=== PATIENT | female | born 1975 | race African-American/Black ===

== ENCOUNTER 2016-05-18 17:34 | Observation (INO) | payer OTHER ==
[~2016-05-18] VITALS: Ht 162.6 cm; Wt 86.2 kg
[~2016-05-18 17:34] MED LIST: ALBUTEROL0.09 MG/A1 INH; AUGMENTIN 500-1 EACH PO; AUGMENTIN 875 M1 TAB PO; BACTROBAN OINT.15 GM EXT; DIFLUCAN150 M1 PO; EXCEDRIN MIGRAI1 TAB PO; FIORICET 325 MG1 TAB PO; FLEXERIL10 MG PO; HYDROXYZINE50 MG PO; IBUPROFEN100 MG/52 PO; IBUPROFEN800 MG PO; IMITREX50 MG PO; KEFLEX500 MG PO; LEVAQUIN500 MG PO; MOTRIN600 MG PO; NAPROXEN500 M1 PO; NEURONTIN100 MG; PERCOCET 325 MG1 TA2 PO; PERCOCET 5-3251 EACH PO; PERMETHRIN60 GM TOP; PREDNISONE50 MG PO; PROTONIX 40MG T40 MG PO; ROBITUSSIN W/CO10 ML PO; TESSALON PERLE100 MG PO; TRIAMCINOLONE A15 G1 TOP; VIBRAMYCIN 100100 MG PO; VICODIN 5-3001 EACH PO; ZOFRAN ODT4 MG PO; ZOFRAN ODT4 MG SL; ZOFRAN4 M1 PO
--- NOTE | 2016-05-18 17:58 | ED CARDIAC/CP/PALPITATIONS ---
History of Present Illness General Chief Complaint: Dyspnea (COPD, CHF, Other) Stated Complaint: SOB/CHEST TIGHTNESS, PT C/O FAST HEART RATE Source: patient Exam Limitations: no limitations Allergies Coded Allergies: latex (HIVES 08/18/15) Reconcile Medications Albuterol Sulfate (Proair Hfa) 90 MCG HFA.AER.AD 2 PUF INH Q4-6 PRN PRN ASTHMA (Reported) Albuterol Sulfate 2.5 MG/3 ML (0.083 %) VIAL.NEB 1 Vial INH/[place] PRN ASTHMA ( Reported) Aspirin (Adult Low Dose Aspirin EC) 81 MG TABLET.DR 1 TAB PO DAILY Heart Health Biotin (Hard Nails) 2,500 MCG CAPSULE 2 CAP PO DAILY SUPPLEMENT (Reported) Budesonide/Formoterol Fumarate (Symbicort 160-4.5 Mcg Inhaler) 160 MCG-4.5 MCG/ ACTUATION HFA.AER.AD 2 PUF INH BID ASTHMA (Reported) Fluticasone/Salmeterol (Advair 250-50 Diskus) (Unknown Strength) BLST.W.DEV ( Unknown Dose) INH BID ASTHMA (Reported) Methimazole (Tapazole) 5 MG TABLET 5 MG PO DAILY Hyperthyroid Metoprolol Succ XL (Toprol XL) 25 MG TAB 25 MG PO DAILY Heart Health Multivitamin (Multi-Day Vitamins) 1 EACH TABLET 1 TAB PO DAILY SUPPLEMENT ( Reported) Triage Nurses Notes Reviewed? yes HPI: This patient is a 40-year-old female with past medical history including asthma and GERD who presented to the emergency department today for chief complaint of chest, "cramping," and shortness of breath since Wednesday. The patient reported that she started noticing that her chest was feeling tight and cramping. She has also been feeling more short of breath and feeling, "sluggish." The patient reported that she thought that her asthma was acting up, so she has been using her inhalers and nebulizer without any relief of her symptoms. She reported that typically when she has an asthma exacerbation, her chest does not feel tight anymore after using the nebulizer machine. She reported that the current cramping is nonradiating and located primarily over the left side of her chest. No provoking or palliative factors. She was unable to quantify this pain on a number scale. The patient reported that she can feel her heart racing and has been feeling palpitations. She denied any fevers, chills, jaw pain, arm pain, numbness or tingling in her extremities, abdominal pain, nausea, vomiting, diarrhea, back pain, or any other associated symptoms. The patient reported that she takes a multivitamin and biotin. No other medications. This patient is not on any exogenous estrogen or control, she denied any calf pain or leg swelling. No cough or hemoptysis. No history of any blood clots. (ZO PEREZ PA-C) Vital Signs & Intake/Output Vital Signs & Intake/Output ED Intake and Output 05/20 0000 05/19 1200 Intake Total Output Total Balance Patient 190 lb Weight Past History Travel History Traveled to [place] past 21 day No Medical History Any Pertinent Medical History? 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 No (ZO PEREZ PA-C) Review of Systems Review of Systems Constitutional: Reports: see HPI. EENTM: Reports: no symptoms. Respiratory: Reports: see HPI. Cardiovascular: Reports: see HPI. GI: Reports: no symptoms. Genitourinary: Reports: no symptoms. Musculoskeletal: Reports: no symptoms. Skin: Reports: no symptoms. Neurological/Psychological: Reports: no symptoms. All Other Systems: Reviewed and Negative (ZO PEREZ PA-C) Physical Exam Physical Exam Cardiovascular: normal peripheral pulses, irregularly irregular, no murmurs, rubs, or gallops. no carotid bruits. no jvd Comments: Well-developed well-nourished person in no acute distress HEENT: Normal EENT exam, moist mucous membranes Pupils equally round and reactive to light. Neck: Supple, with no lymphadenopathy. No thyromegaly appreciated Back: Normal inspection Respiratory: Chest nontender. No respiratory distress. Speaking in full sentences. Lungs clear to auscultation bilaterally with no murmurs, rubs, gallops Abdomen: Soft, nontender and nondistended Extremity: Normal and equal pulses. No calf pain. No calf swelling. Negative Homans sign bilaterally Neuro: Alert oriented x3, cranial nerves II through XII grossly intact. Skin: No appreciable rash on exposed skin, skin is warm and dry. Psych: Mood and affect is normal, memory and judgment is normal. Core Measures ACS in differential dx? Yes Severe Sepsis Present: No Septic Shock Present: No (ZO PEREZ PA-C) Progress Differential Diagnosis: AMI, aortic dissection, atrial fibrillation, cholecystitis, CHF/pulm edema, costochondritis, hyperkalemia, hyperthyroid, hyperventilation, intracranial hemorrhage, musculoskeletal pain, myocarditis, pancreatitis, pericarditis, pneumonia, pneumothorax, PSVT, pulmonary embolism, PUD/GERD, PVCs/PACs, sepsis, unstable angina, atrial flutter Plan of Care: Orders Procedure Date/time Status Heart Healthy Diet 05/19 B Active Pathway - chart 05/18 2146 Active House Staff 05/18 2146 Active Patient Data 05/18 2146 Active Code Status 05/18 2146 Active Patient Data 05/[address] in observation 05/18 2058 Active D-DIMER 05/18 1830 Complete THYROID STIMULATING HORMONE 05/18 175 Complete TROPONIN LEVEL 05/18 175 Complete PARTIAL THROMBOPLASTIN TIME 05/18 1757 Complete PROTHROMBIN TIME 05/18 1757 Complete MAGNESIUM 05/18 175 Complete LIPID PANEL 05/18 175 Complete HUMAN BETA HCG SCREEN 05/18 175 Complete FREE T4 05/18 175 Complete COMPREHENSIVE METABOLIC PANEL 05/18 175 Complete CBC WITHOUT DIFFERENTIAL 05/18 175 Complete EKG 05/18 1739 Active VTE Mechanical Prophylaxis 05/18 UNK Active Telemetry/Meteorological Aide 05/18 UNK Active Current Medications Sig/Gabi Start time Last Medication Dose Stop Time Status Admin Budesonide/ 2 PUF BID 05/18 2199 UNVr Formoterol Fumarate (Symbicort) Budesonide/ 2 PUF BID 05/18 2199 UNVr Formoterol Fumarate (Symbicort) Laboratory Tests 05/18/16 1830: Anion Gap 12, Estimated GFR > 60, BUN/Creatinine Ratio 20.0, Glucose 92, Calcium 9.0, Magnesium 1.6, Total Bilirubin 0.3, AST 18, ALT 20, Alkaline Phosphatase 71 , Troponin I < 0.01, Total Protein 7.2, Albumin 3.5, Globulin 3.7, Albumin/ Globulin Ratio 0.9 L, Triglycerides 154 H, Cholesterol 127, LDL Cholesterol, Calc 52 L, HDL Cholesterol 45, Cholesterol/HDL Ratio 3, TSH < 0.015 L, Free T4 1.72, Total Beta HCG NEGATIVE, PT 11.1, INR 1.06, APTT 28, D-Dimer 283 H, CBC w Diff NO MAN DIFF REQ, RBC 5.44 H, MCV 62.5 L, MCH 19.1 L, RDW 16.3 H, MPV 8.4, Gran % 69.3, Lymphocytes % 19.5 L, Monocytes % 9.1, Eosinophils % 1.7, Basophils % 0.4, Absolute Granulocytes 7.7 H, Absolute Lymphocytes 2.2, Absolute Monocytes 1.0 H, Absolute Eosinophils 0.2, Absolute Basophils 0, PUBS MCHC 30.6 L 05/18/16 1807: D-Dimer Cancelled Diagnostic Imaging: Viewed by Me: Radiology Read, CT Scan. Discussed w/RAD: Radiology Read, CT Scan. Radiology Impression: PATIENT: NATHAN MORILLO PRESENT AGE: 40 PATIENT ACCOUNT NO: [id number] : 77 LOCATION: [facility] ORDERING PHYSICIAN: ZO PEREZ PA-C SERVICE DATE: 05/18/16 EXAM TYPE: CAT - CTA CHEST-PULMONARY EMBOLISM EXAMINATION: CT ANGIOGRAM OF THE CHEST WITH AND WITHOUT CONTRAST (CT PULMONARY ANGIOGRAM FOR PE) CLINICAL INFORMATION: SOB, AFIB , CHEST CRAMPING COMPARISON: Chest x-ray 05/18/2016 TECHNIQUE: Prior to contrast administration, noncontrast localization images were obtained. Subsequently, multidetector volumetric imaging was performed from the thoracic inlet to below the diaphragms following the administration of 120 mL Optiray 350 intravenous contrast. No contrast reaction reported Sagittal, coronal, and MIP oblique sagittal reformatted images were obtained on the CT workstation, uploaded to PACS, and reviewed. Total exam dose-length product 565.77 mGy-cm FINDINGS: QUALITY OF STUDY/CONTRAST BOLUS: Satisfactory. PULMONARY ARTERIES: No central or segmental pulmonary emboli. THORACIC AORTA: No aneurysm or dissection. LUNG: No focal consolidation, nodules or masses. PLEURA: No pleural effusion or pneumothorax. MEDIASTINUM: Normal heart size. No pericardial effusion. No hilar or mediastinal lymphadenopathy. No evidence of septal bowing or right heart strain. CHEST WALL/AXILLA: No axillary or internal mammary lymphadenopathy. OSSEOUS STRUCTURES: No acute or suspicious osseous abnormality. UPPER ABDOMEN: Unremarkable. No reflux of contrast into the hepatic veins to suggest elevated right heart pressures. There is a left renal cyst in the upper pole measuring 3 cm. IMPRESSION: Normal CT of chest. No evidence of pulmonary embolism. VTE: negative DICTATED BY: SERVANDO PADGETT MD DATE/TIME DICTATED:05/18/162025 [employer] TECHNICIAN:UTE DATE/TIME TRANSCRIBED:05/18/162025 CONFIDENTIAL, DO NOT COPY WITHOUT APPROPRIATE AUTHORIZATION. <Electronically signed in Other Vendor System> SIGNED BY: SERVANDO PADGETT MD 05/18/162037 CXR Impression: PATIENT: NATHAN MORILLO PRESENT AGE: 40 PATIENT ACCOUNT NO: [id number] : 77 LOCATION: [facility] ORDERING PHYSICIAN: ZO PEREZ PA-C SERVICE DATE: 05/18/16 EXAM TYPE: RAD - XRY- PORTABLE CHEST XRAY EXAMINATION: XR PORTABLE CHEST CLINICAL INFORMATION: 40-year -old female with chest tightness and shortness of breath. COMPARISON: None recent. TECHNIQUE: Portable view of the chest was obtained in the AP semierect position. FINDINGS: No significant abnormality is noted involving the heart, lungs, mediastinum, bony thorax or soft tissues. IMPRESSION: Unremarkable examination. DICTATED BY: ERNIE PAUL MD DATE/TIME DICTATED:05/18/162023 [employer]ARD[employer] TECHNICIAN:UTE DATE/TIME TRANSCRIBED:05/18/162023 CONFIDENTIAL, DO NOT COPY WITHOUT APPROPRIATE AUTHORIZATION. <Electronically signed in Other Vendor System> SIGNED BY: ERNIE PAUL MD 05/18/162029 Initial ED EKG: normal axis, no ST T wave changes, ATRIAL FLUTTER, 105 BPM Comments: 05/18/2016 7:34:43 PM: I was at the patient's bedside for reevaluation. Upon entering the room she was resting comfortably on the stretcher and in no acute distress. Updated her on her laboratory results so far. D-dimer is elevated to 283. Based on this patient's constellation of symptoms and elevated d-dimer, we will order a CT angiogram of the chest to rule out pulmonary embolism. The patient is in agreement with the plan. She reported that she has had intravenous contrast in the past with no adverse reaction. 05/18/2016 8:41:13 PM: I updated the patient on her imaging results. She did report that she has been told that she does have a low thyroid in the past. In March 2016 she had an ultrasound of her thyroid. The results here in the emergency department from the prior imaging showed 2 small nodules, one on the right lobe of the thyroid and one on the left lobe of the thyroid. 05/18/2016 8:56:12 PM: Spoke to Dr. Salinas, vice president industrial relations. Discussed this patient's workup with him. He would like this person to stay in the emergency department observation and have serial troponins and serial EKGs done. This patient may have this irregular heart rhythm due to hyperthyroidism. She will need an endocrinology follow-up appointment and cardiology follow-up appointment for echo and stress testing and further management. Discussed this patient with Dr. So. Chads score is 0. In agreement with the plan. (ANA FUNES,OZ) Departure Departure Disposition: STILL A PATIENT Condition: Stable Clinical Impression Primary Impression: Atrial flutter Qualifiers: Atrial flutter type: unspecified Qualified Code: I48.92 - Unspecified atrial flutter Referrals: SUMMER [facility]K APRN (PCP/Family) Departure Forms: Customer Survey General Discharge Information Prescriptions: Current Visit Scripts Methimazole (Tapazole) 5 MG PO DAILY #30 Metoprolol Succ XL (Toprol XL) 25 MG PO DAILY #30 TAB Aspirin (Adult Low Dose Aspirin EC) 1 TAB PO DAILY #30 TAB Observation Note Spoke With: KEE JAY MD Physician Advisor Notified: ESPINOZA DAILEY,SONNY Cal[address] Place Patient In: Non-ED OBS Care Area Rationale for Observation: My rational for observation is as follows [this patient is a 40-year-old female with a past medical history including GERD, asthma, and low thyroid level who presented to the emergency department for 3 days of chest cramping and shortness of breath. New onset atrial fibrillation versus atrial flutter. This patient will need to stay in the hospital for an observation for serial troponin levels, serial EKG, cardiology consultation, oxygen therapy, trend labs, and close monitoring. Given this patient's constellation of symptoms and history, premature discharge could prove medically harmful.]. (ANA FUNES,ZO) PA/RELIEF SALESPERSON Co-Sign Statement Statement: ED Attending supervision documentation- [X] I saw and evaluated the patient. I have also reviewed all the pertinent lab results and diagnostic results. I agree with the findings and the plan of care as documented in the PA's/RELIEF SALESPERSON's documentation. [X] I have reviewed the ED Record and agree with the PA's/RELIEF SALESPERSON's documentation. [] Additions or exceptions (if any) to the PAs/RELIEF SALESPERSON's note and plan are summarized below: [Patient found to be in new onset A. fib flutter. Patient's TSH is less than 0.015 however her free T4 is normal. The patient's CT angiogram was negative. Patient will require telemetry monitoring and serial enzymes. Patient will need cardiology evaluation and she'll need to see an cans vacuum tester. Patient SERA 2 score is 0.] (TRUPTI DAILEY,ESSENCE Calvert) Critical Care Note Critical Care Note Critical Care Time: non-applicable (ANA FUNES,ZO)
--- NOTE | 2016-05-18 17:59 | NUR ---
PT BROUGHT DIRECTLY TO RM 1 FOR CHEST TIGHTNESS, AND FEELING SLUGGISH FOR 3 DAYS. PT STATES SHE THOUGHT IT WAS HER ASTHMA BUT HAS HAD NO RELEIF FROM HER ALBUTEROL INHALER OR NEBS.
--- NOTE | 2016-05-18 18:38 | NUR ---
RECIEVED TO ROOM 1. SEEN BY ZO CHI. PT ON MONITOR IN AFIB. PLACED ON 2 LITERS NASAL CANNULA A PRECAUTION PER ORDER ZO CHI. 02 SATS ON ROOM AIR 100%. IV PLACED AND LABS NOEMY
[2016-05-18] MEDS ORDERED: MULTI-DAY VITA1 EACH PO (18:42)
[2016-05-18] MEDS ORDERED: HARD NAILS2500 MCG PO (18:43)
[2016-05-18] MEDS ORDERED: SYMBICORT 16010.2 GM INH (18:45)
[2016-05-18] MEDS ORDERED: PROAIR HFA8.5 GM INH (18:45)
[2016-05-18] MEDS ORDERED: ALBUTEROL2.5 MG/3 M INH/SOL (18:46)
[2016-05-18] MEDS ORDERED: ADVAIR 250-501 EACH INH (18:46)
[2016-05-18 18:47] LABS: ABSOLUTE BASOPHIL COUNT 0 /CUMM (0.0-0.2); ABSOLUTE EOSINOPHIL COUNT 0.2 /CUMM (0.0-0.7); ABSOLUTE GRANULOCYTE CT 7.7 /CUMM (1.4-6.5); ABSOLUTE LYMPH COUNT 2.2 /CUMM (1.2-3.4); BASOPHIL % 0.4 % (0.0-2.0); EOSINOPHIL % 1.7 % (0-5); GRANULOCYTE % 69.3 % (42.2-75.2); MEAN CORPUSCULAR HGB 19.1 PG (27.0-31.0); MEAN CORPUSCULAR HGB CONC 30.6 G/DL (33.0-37.0); MEAN CORPUSCULAR VOLUME 62.5 FL (81.0-99.0); MEAN PLATELET VOLUME 8.4 FL (7.4-10.4); PLATELET COUNT 317 /CUMM (130-400); RBC DISTRIBUTION WIDTH 16.3 % (11.5-14.5); RED BLOOD CELL CT 5.44 /CUMM (4.20-5.40); WHITE BLOOD CELL COUNT 11.1 /CUMM (4.8-10.8)
[2016-05-18 18:56] LABS: PT 11.1 SEC (9.4-12.5); PTT 28 SEC (25-37)
--- NOTE | 2016-05-18 19:10 | NUR ---
XRAY AT BEDSIDE FOR IMAGING
--- NOTE | 2016-05-18 19:31 | NUR ---
ARTI PEREZ AT BEDSIDE FOR DISCUSSION ON PLAN OF CARE
--- NOTE | 2016-05-18 20:30 | RADIOLOGY REPORT ---
EXAMINATION: XR PORTABLE CHEST CLINICAL INFORMATION: 40-year-old female with chest tightness and shortness of breath. COMPARISON: None recent. TECHNIQUE: Portable view of the chest was obtained in the AP semierect position. FINDINGS: No significant abnormality is noted involving the heart, lungs, mediastinum, bony thorax or soft tissues. IMPRESSION: Unremarkable examination.
--- NOTE | 2016-05-18 20:38 | CT SCAN REPORT ---
EXAMINATION: CT ANGIOGRAM OF THE CHEST WITH AND WITHOUT CONTRAST (CT PULMONARY ANGIOGRAM FOR PE) CLINICAL INFORMATION: SOB, AFIB, CHEST CRAMPING COMPARISON: Chest x-ray 05/18/2016 TECHNIQUE: Prior to contrast administration, noncontrast localization images were obtained. Subsequently, multidetector volumetric imaging was performed from the thoracic inlet to below the diaphragms following the administration of 120 mL Optiray 350 intravenous contrast. No contrast reaction reported Sagittal, coronal, and MIP oblique sagittal reformatted images were obtained on the CT workstation, uploaded to PACS, and reviewed. Total exam dose-length product 565.77 mGy-cm FINDINGS: QUALITY OF STUDY/CONTRAST BOLUS: Satisfactory. PULMONARY ARTERIES: No central or segmental pulmonary emboli. THORACIC AORTA: No aneurysm or dissection. LUNG: No focal consolidation, nodules or masses. PLEURA: No pleural effusion or pneumothorax. MEDIASTINUM: Normal heart size. No pericardial effusion. No hilar or mediastinal lymphadenopathy. No evidence of septal bowing or right heart strain. CHEST WALL/AXILLA: No axillary or internal mammary lymphadenopathy. OSSEOUS STRUCTURES: No acute or suspicious osseous abnormality. UPPER ABDOMEN: Unremarkable. No reflux of contrast into the hepatic veins to suggest elevated right heart pressures. There is a left renal cyst in the upper pole measuring 3 cm. IMPRESSION: Normal CT of chest. No evidence of pulmonary embolism. VTE: negative
--- NOTE | 2016-05-18 21:09 | NUR ---
PT MEDICATED WITH 325MG ASPIRIN PER EMAR
--- NOTE | 2016-05-18 21:24 | History & Physical ---
KIA DAILEY,[facility] 05/18/162122: General Information and HPI MD Statement: I have seen and personally examined NATHAN REGALADO and documented this H&P. The patient is a 40 year old F who presented with a patient stated chief complaint of shortness of breath and chest tightness. Source of Information: patient Exam Limitations: no limitations History of Present Illness: This is a 40-year-old lady with past medical history significant for asthma, GERD, menorrhagia, 2 ectopic pregnancies presents to [place] ED with complaints of shortness of breath. Patient states on Wednesday while at her normal state of health, developed shortness of breath and chest tightness. Patient states that she has experienced these episodes before and attributed them to her history of asthma and are normally alleviated by albuterol MDI use. However, patient reports that shortness of breath and chest tightness continued the following days on Wednesday and Wednesday and albuterol did not seem to help. Around 9 AM today (05/18), while she was bending down, she felt a sensation that she decribes as "my heart was flipping and flopping" and also experienced some palpitations. Patient reports this episode is new and has never happened before. Patient denies any chest pain, chest trauma, cough, recent URI, fever, chills, nausea, vomiting, abdominal pain, dizziness or any focal neurological deficit. Of note, her last asthma flare up was 4 years ago, which did not require hospitalization. Pertinent negatives include no contraceptive use, no recent calf pain, or central no recent immobilization or long distance travel, and family history is negative for any blood clotting disorders. . Allergies/Medications Allergies: Coded Allergies: latex (HIVES 08/18/15) Home Med list Albuterol Sulfate (Proair Hfa) 90 MCG HFA.AER.AD 2 PUF INH Q4-6 PRN PRN ASTHMA (Reported) Albuterol Sulfate 2.5 MG/3 ML (0.083 %) VIAL.NEB 1 Vial INH/[place] PRN ASTHMA ( Reported) Biotin (Hard Nails) 2,500 MCG CAPSULE 2 CAP PO DAILY SUPPLEMENT (Reported) Budesonide/Formoterol Fumarate (Symbicort 160-4.5 Mcg Inhaler) 160 MCG-4.5 MCG/ ACTUATION HFA.AER.AD 2 PUF INH BID ASTHMA (Reported) Fluticasone/Salmeterol (Advair 250-50 Diskus) (Unknown Strength) BLST.W.DEV ( Unknown Dose) INH BID ASTHMA (Reported) Multivitamin (Multi-Day Vitamins) 1 EACH TABLET 1 TAB PO DAILY SUPPLEMENT ( Reported) Past History Travel History Traveled to [place] past 21 day No Medical History Neurological: NONE EENT: NONE Cardiovascular: NONE Respiratory: asthma Gastrointestinal: GERD Hepatic: NONE Renal: NONE Musculoskeletal: NONE Psychiatric: NONE Endocrine: NONE Blood Disorders: NONE Cancer(s): NONE FLOWER 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 EENTM: Denies: double vision, visual changes, eye drainage. Cardiovascular: Reports: palpitations. Denies: chest pain, syncope. Respiratory: Reports: short of breath. Denies: cough, hemoptysis, orthopnea. GI: Denies: abdominal pain, bloating, constipation. Genitourinary: Denies: discharge, dysuria, hematuria, hesitation. Musculoskeletal: Denies: gout, joint pain, joint swelling. Skin: Denies: jaundice, lesions. Neurological/Psychological: Denies: depressed, dementia, emotional problems. Hematologic/Endocrine: Reports: no symptoms. Immunologic/Allergic: Reports: no symptoms. Exam & Diagnostic Data Last 24 Hrs of Vital Signs/I&O Vital Signs Date Time Temp Pulse Resp B/P Pulse O2 O2 Flow FiO2 Ox Delivery Rate 05/18 1839 Room Air 05/18 1754 98.0 100 16 114/70 98 Room Air Room Air Physical Exam General Appearance Alert, Oriented X3, Cooperative Skin No Rashes, No Breakdown, No Significant Lesion HEENT Atraumatic, PERRLA, EOMI, oral mucosa slightly dry Neck Supple, No JVD, No thryomegaly, +2 Carotid Pulse wo Bruit, No LAD Lymphatic Cervical nl Cardiovascular Normal S1, Normal S2, No Murmurs, irregular rate Lungs Clear to Auscultation, Normal Air Movement Abdomen Normal Bowel Sounds, Soft, No Tenderness Neurological Normal Speech, Normal Tone, Sensation Intact Extremities No Clubbing, No Cyanosis, No Edema, Normal Pulses, No Tenderness/ Swelling Vascular Normal Pulses, Pulses Symmetrical Diagnostic Data EKG Results arythimia: a/flutter. No acute ischemic changes noted Other Results SERVICE DATE: 05/18/16 EXAM TYPE: CAT - CTA CHEST-PULMONARY EMBOLISM EXAMINATION: CT ANGIOGRAM OF THE CHEST WITH AND WITHOUT CONTRAST (CT PULMONARY ANGIOGRAM FOR PE) CLINICAL INFORMATION: SOB, AFIB, CHEST CRAMPING COMPARISON: Chest x-ray 05/18/2016 TECHNIQUE: Prior to contrast administration, noncontrast localization images were obtained. Subsequently, multidetector volumetric imaging was performed from the thoracic inlet to below the diaphragms following the administration of 120 mL Optiray 350 intravenous contrast. No contrast reaction reported Sagittal, coronal, and MIP oblique sagittal reformatted images were obtained on the CT workstation, uploaded to PACS, and reviewed. Total exam dose-length product 565.77 mGy-cm FINDINGS: QUALITY OF STUDY/CONTRAST BOLUS: Satisfactory. PULMONARY ARTERIES: No central or segmental pulmonary emboli. THORACIC AORTA: No aneurysm or dissection. LUNG: No focal consolidation, nodules or masses. PLEURA: No pleural effusion or pneumothorax. MEDIASTINUM: Normal heart size. No pericardial effusion. No hilar or mediastinal lymphadenopathy. No evidence of septal bowing or right heart strain. CHEST WALL/AXILLA: No axillary or internal mammary lymphadenopathy. OSSEOUS STRUCTURES: No acute or suspicious osseous abnormality. UPPER ABDOMEN: Unremarkable. No reflux of contrast into the hepatic veins to suggest elevated right heart pressures. There is a left renal cyst in the upper pole measuring 3 cm. IMPRESSION: Normal CT of chest. No evidence of pulmonary embolism. VTE: negative DICTATED BY: SERVANDO PADGETT MD Assessment/Plan Assessment: This is a 89-year-old female with past medical history significant for asthma and GERD is presenting with symptoms of shortness of breath and chest tightness, and is found to have new onset a/flutter. Impression * New onset a /flutter: Possibly etiologies include respiratory , albuterol use, and hyperthyroidism. Will need to rule out ACS. * Shortness of breath: Possibly secondary to asthma * Anemia: Patient does have chronic microcytic anemia. * Elevated d-dimer. CTA ruled out PE. * Abnormal TSH level. Possible subclinical hyperthyroidism as T4 is normal. Subclinical hypothyroidism normally does not warrant treatment. In the setting of a/flutter in this patient, and history of radiological findings of thyroid nodules, retesting and endocrine consult may be beneficial. Plan * Will admit to telemetry for close cardiac monitoring * Will start Heparin drip per cardio recs (apreciated) * Will trend troponins and EKG * Echocardiogram tomorrow morning to assess for any valvular pathology * TRC nebs for asthma control * iron studies * f/u urine tox As Ranked By This Provider Problem List: 1. Atrial flutter Qualifiers Atrial flutter type: unspecified Qualified Code: I48.92 - Unspecified atrial flutter 2. History of asthma Core Measures/Miscellaneous Acute Coronary Syndrome ACS Diagnosis: No Cerebrovascular Accident CVA/TIA Diagnosis: No Congestive Heart Failure CHF Diagnosis: No Venous Thromboembolism VTE Risk Factors: Acute medical illness VTE Prophylaxis Ordered Inpt: [facility]- [facility] prophylaxis d/t: No contraindications No VTE Pharm Prophylaxis d/t: No contraindications VTE Diagnosis: No VTE Type: NONE VTE Confirmed by (Test): NONE Severe Sepsis Severe Sepsis Present: No Septic Shock Septic Shock Present: No Miscellaneous Documentation Attending [facility] Primary Care Physician: SUMMER MONK APRN Patient sees these Specialists none Level of Patient Care: Telemetry YESICA KIM 05/18/16 2251: Resident Review Statement Resident Statement: examined this patient, discussed with fashion styling intern, agreed with fashion styling intern, discussed with family, reviewed EMR data (avail), discussed with nursing , reviewed images Other Findings: Mrs Regalado is a 40 y/o AA lady w/ a PMH of left-sided ectopic in October 2015, arthroplasty in 2014, asthma, menorrhagia and history of shortness of breath, chest tightness and feeling sluggish. She reports a 3 day duration of loose bowel movements late last week. Over the weekend she experienced intermittent episodes of chest pressure what she intially thought was an asthma exacerbation, mildly improved with her albuterol. This morning while she was at work she experienced a sudden onset of palpitations and a feeling of "sluggishness" that has persisted since promptin her to follow up in the ED. She denies any headaches, blurred vision, dizziness, slurred speech, nausea, vomiting, numbness in any of her extremities. 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 QTC 434 Thyroid ultrasound (03/25/16): 2 small subcentimeter thyroid masses unchanged.. Problem list: 1. New onset atrial flutter/ablation 2. Low TSH (?? Hyperthyroidism) 3. Elevated d-dimer 4. Anemia 5. Asthma Plan: * admit to telemetry for continuous cardiac monitoring. Will obtain repeat EKG/ troponin at 0 100 hours, 0600 hrs. * Cardiology already notified (Dr. Suggs). In the setting of unknown duration of a flutter, will start the patient on heparin. Follow up echocardiogram in the a.m. * In the setting of low TSH and thyroid ultrasound findings as indicated above, would obtain endocrinology consult in the morning * Heart healthy diet * TRCs * DVT prophylaxis: Heparin * CODE STATUS: Full code PIERRE DAILEY, [facility] 05/18/16 2337: Attending MD Review Statement Attending Statement Attending MD Statement: examined this patient, discuss w/resident/PA/DIESEL BUS MECHANIC, agreed w/resident/PA/DIESEL BUS MECHANIC Attending Assessment/Plan: 40 yo obese F with h/o intermittent asthma, GERD, menorrhagia, left salpingectomy for ectopic (October 2015), is here for 2-day h/o chest tightness, lethargy and dyspnea. She tried albuterol thinking it is her asthma acting up, with not much relief in her symptoms. This was followed by palpitations that started while she was at work today, and persisted since. VSS. Labs: WBC 11.1, microcytic anemia, elevated D-dimer, trop neg, TSH < 0.015, free T4 1.72. CXR neg. CTA: no PE. EKG: Aflutter. 1. New onset Atrial flutter in the setting of possible subclinical hyperthyroidism (low TSH, normal free T4). 23 Obs on Tele, monitor for conversion to SR, serial EKG and troponin, Echo, Cardio consult (Dr. Suggs). Her OYE2SQ2-XILt score is 1, low embolic risk. However, Dr. Suggs recommended IV heparin which has been initiated. Aspirin given in ER. I would check a urine tox screen as patient reports occasional use of marijuana. Check free T3. Of note, patient had a thyroid USG in Mar 2016 which showed 2 subcentimeter thyroid nodules. Will obtain Endo consult in AM for appropriate follow up as outpatient. 2. Microcytic anemia. Guaiac all stools while on heparin, check iron studies. 3. Leukocytosis likely reactive. Check urinalysis. 4. Stable intermittent asthma. Continue TRC nebs and symbicort. DVT ppx IV heparin. Full code.
--- NOTE | 2016-05-18 21:32 | NUR ---
TELEMETRY RESIDENTS AT BEDSIDE FOR EVAL
--- NOTE | 2016-05-18 22:41 | NUR ---
PT MEDICATED WITH 2 PUFFS OF SYMBICORT WITH USE OF SPACER
--- NOTE | 2016-05-19 00:48 | NUR ---
REPEAT TROP DRAWN AND SENT BY THIS MST.
--- NOTE | 2016-05-19 05:06 | NUR ---
REPEAT TROP AND PTT DRAWN AND SENT BY THIS MST.
[2016-05-19 05:12] LABS: PTT 62 SEC (25-37)
--- NOTE | 2016-05-19 05:35 | NUR ---
OFFERS NO COMPLAINTS AMBULATED TO BR, URINE SPEC OBTAINED PT HAS MENSES VENODYNE BOOTS APPLIED
--- NOTE | 2016-05-19 06:50 | NUR ---
PT ADMIT TO TELE RM [id number]
--- NOTE | 2016-05-19 06:57 | PN- Housestaff ---
ALESSANDRA DAILEY,[facility] 05/19/16 0656: Subjective Follow-up For: Atrial Flutter Tele-Events Since Last Visit: NA Subjective: Ms Regalado was seen and examined this morning. She is resting comfortably in bed. Patient reports that her chest symptoms have markedly improved.S he has not had any palpitations or orthopnea since admission. She denies any shortness of breath or chest tightness Patient however does report lower abdominal cramps secondary to menses. Pain is currently rated at a 8 out of 10 in severity. Patient states that she normally experiences dysmenorrhea owing to history of painful menses. Patient reports since admission she denies any fever, chills, nausea, vomiting. Tolerating by mouth intake well. Review of Systems Constitutional: Reports: see HPI. Denies: chills, diaphoresis, fever, malaise. Objective Last 24 Hrs of Vital Signs/I&O Vital Signs Date Time Temp Pulse Resp B/P Pulse O2 O2 Flow FiO2 Ox Delivery Rate 05/19 0907 97.8 88 18 96/64 98 Room Air 05/19 0826 100 Room Air 05/19 0823 97.9 90 18 107/74 100 Room Air 05/19 0815 97.9 90 18 107/74 100 Room Air 05/19 0534 98.4 81 18 115/61 96 Nasal 2.0L Cannula 05/18 1839 Room Air 05/18 1754 98.0 100 16 114/70 98 Room Air Room Air Intake & Output 05/19 1600 05/19 0800 05/19 0000 Intake Total Output Total Balance Patient 86.183 kg 86.183 kg Weight Physical Exam General Appearance: Alert, Oriented X3, Cooperative, No Acute Distress Skin: No Rashes Cardiovascular: Normal S1, Normal S2, No Murmurs Lungs: Clear to Auscultation Abdomen: Normal Bowel Sounds, Soft, No Tenderness Neurological: Normal Speech, Strength at 5/5 X4 Ext Extremities: No Edema, Right 5th toe discolored Vascular: Normal Pulses Current Medications: Current Medications Sig/Gabi Start time Last Medication Dose Route Stop Time Status Admin Aspirin 0 .STK-MED ONE 05/18 2107 DC PO Aspirin 325 MG ONCE ONE 05/18 2099 DC 05/18 PO 05/18 Budesonide/ 2 PUF BID 05/18 2199 CAN Formoterol Fumarate INH Budesonide/ 2 PUF BID 05/18 2200 AC 05/18 Formoterol Fumarate INH 2241 Heparin Sodium 25,000 UNIT Q24H 05/18 2245 AC 05/18 (Porcine) IV 2302 Sodium Chloride 500 ML Ibuprofen 600 MG ONCE ONE 05/19 1000 AC PO 05/19 1001 Methimazole 5 MG DAILY 05/19 1000 AC PO Assessment/Plan Assessment: Ms. Regalado is a 40-year-old female with past medical history of GERD, asthma, menorrhagia, dysmenorrhea, thyroid nodules found incidentally in March 2016 who presented to the emergency department complaining of worsening palpitations over the last 72 hours. Patient was found to be in arrhythmia (atrial flutter versus fib). #New-onset atrial fibrillation likely due to sub clinical Hyperthyroidism Patient converted to normal sinus rhythm. Patient was started on heparin drip overnight and we can change this to aspirin which she will be administered daily. Will trend troponins and EKG: Initial Troponins and EKG, did not show any evidence of ischemia. We'll begin Toprol-XL 25 mg daily. Patient doesnot need to be anticoagulated given general CHADVASC2 score of 1 ( Female). Patient is stable for discharge and would likely need an echocardiogram as an outpatient. #Sub clinical hyperthyroidism. Patient was started on methimazole 5 mg daily. Monitor thyroid function in a.m. Free T3, T4, and TSH Given referral to follow up as an outpatient. #SOB coupled with Elevated D-Dimer Rule out PE Patient did have an elevated d-dimer the emergency department CTA was performed no evidence of any pulmonary embolism. Patient does have risk factors (obese, female) however denies any prolonged immobilization or OCP use. #History of asthma TRC nebs Supplemental O2 as needed Incentive Spirometry #History of menorrhagia and dysmenorrhea Iron studies rule out iron deficiency anemia Ibuprofen for pain PRN. #History of questionable drug use f/u urine tox #DVT prophylaxis IV heparin #Diet Heart healthy #Code Full code Problem List: 1. History of asthma 2. Atrial flutter 3. Eczema 4. Muscle strain of right shoulder 5. Ectopic 6. Dysmenorrhea Pain Ratin Pain Location: Lower Abdomen. Pain Goal: Remain pain free Pain Plan: Ibuprofen PRN Tomorrow's Labs & Rationales: ELIAS MARIE MD 05/19/162128: Attending MD Review Statement Attending Statement Attending MD Statement: examined this patient, discuss w/resident/PA/TOWBOAT OPERATOR, agreed w/resident/PA/TOWBOAT OPERATOR, reviewed EMR data (avail), discussed with nursing, discussed with case mgmt, amended to note Attending Assessment/Plan: The patient was seen and discussed with house staff. Appreciate Cardiology & Endocrinology input. Will discharge today with follow-up thyroid indices in morning and OP follow-up with PCP, Endocrinology & Cardiology.
--- NOTE | 2016-05-19 07:53 | NUR ---
ASSUMED CARE, PT AWAKE ALERT AND ORIENTED, DENIES FEELING SOB AT THIS TIME , O2 SAT 100 % ON RA, HR 90 AND AFIB ON MONITOR, HEPARIN INFUSING VIA PUMP AT 26ML/HR. PT AMBULATED TO BATHROOM AT THIS TIME WITH STEADY GAIT, PT STATES THAT SHE HAS 8/10 MENSTRUAL CRAMPS AT THIS TIME, STATES THAT SHE HAD TO GET UP X 3 DURING THE NIGHT TO CHANGE HER MAXI PAD DUE TO OURS ARE SMALLER THAN THE ONES SHE USES, PT PROVIDED WITH ANOTHER PAD AND WARM WIPES SO THAT SHE CAN WASH UP AT THIS TIME. BREAKFAST TRAY PRIVIDED AND PT ATE ABOUT 75 %
--- NOTE | 2016-05-19 08:19 | NUR ---
REPORT TO JOHN ON TELE.
[2016-05-19 08:23] VITALS: BP 107/74
--- NOTE | 2016-05-19 08:31 | NUR ---
PT NOTED TO BE NSR ON M ONITOR AT THIS TIME HR 86.
[2016-05-19 09:07] VITALS: BP 96/64
--- NOTE | 2016-05-19 10:59 | Cons- Endocrinology ---
General Information and HPI Consulting Request Date of Consult: 05/19/16 Requested By: medical team Reason for Consult: management of hyperthyroidism Source of Information: patient, old records Exam Limitations: no limitations History of Present Illness: 40 yo obese [place] with hx of asthma, GERD, menorrhagia, left salpingectomy for ectopic and two subcentimeter thyroid nodules, presented to ER with the chief complaint of having intermittent palpitation x 3 days. Patient was found to be in atrial flutter. Her TSH was < 0.015 along with free T4 of 1.72 and free T3 5.8. She received iv contrast when she had CT scan of chest done. Allergies/Medications Allergies: Coded Allergies: latex (HIVES 08/18/15) Home Med List: Albuterol Sulfate (Proair Hfa) 90 MCG HFA.AER.AD 2 PUF INH Q4-6 PRN PRN ASTHMA (Reported) Albuterol Sulfate 2.5 MG/3 ML (0.083 %) VIAL.NEB 1 Vial INH/[place] PRN ASTHMA ( Reported) Biotin (Hard Nails) 2,500 MCG CAPSULE 2 CAP PO DAILY SUPPLEMENT (Reported) Budesonide/Formoterol Fumarate (Symbicort 160-4.5 Mcg Inhaler) 160 MCG-4.5 MCG/ ACTUATION HFA.AER.AD 2 PUF INH BID ASTHMA (Reported) Fluticasone/Salmeterol (Advair 250-50 Diskus) (Unknown Strength) BLST.W.DEV ( Unknown Dose) INH BID ASTHMA (Reported) Multivitamin (Multi-Day Vitamins) 1 EACH TABLET 1 TAB PO DAILY SUPPLEMENT ( Reported) Review of Systems Review of Systems Constitutional: Reports: see HPI. Cardiovascular: Reports: palpitations. Respiratory: Reports: short of breath. GI: Denies: abdominal pain, constipation, diarrhea. Genitourinary: Denies: dysuria. Hematologic/Endocrine: Denies: polyuria, polydipsia. 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, ectopic Surgical History Surgical History: chronic nonhealing ulcer fourth interspace right foot hammer toe surgery I&D LAPAROSCOPY Psychosocial History Smoking Status: Never Smoked ETOH Use: denies use Illicit Drug Use: denies illicit drug use Exam & Diagnostic Data Last 24 Hrs of Vital Signs/I&O Vital Signs Date Time Temp Pulse Resp B/P Pulse O2 O2 Flow FiO2 Ox Delivery Rate 05/19 0807 97.8 88 18 96/64 98 Room Air 05/19 0826 100 Room Air 05/19 0823 97.9 90 18 107/74 100 Room Air 05/19 0815 97.9 90 18 107/74 100 Room Air 05/19 0534 98.4 81 18 115/61 96 Nasal 2.0L Cannula 05/18 1839 Room Air 05/18 1754 98.0 100 16 114/70 98 Room Air Room Air Intake & Output 05/19 1600 05/19 0800 05/19 0000 Intake Total Output Total Balance Patient 190 lb 190 lb Weight Physical Exam General Appearance: no apparent distress Neck: thyromegaly (mild) Respiratory: lungs clear Cardiovascular: regular rate/rhythm Gastrointestinal: soft, non-tender Extremities: no edema Other Physical Findings: no fine tremors Assessment/Plan Assessment/Plan 40 yo obese [place] with hx of asthma, GERD, menorrhagia, left salpingectomy for ectopic and two subcentimeter thyroid nodules, presented to ER with the chief complaint of having intermittent palpitation x 3 days. Patient was admitted for atrial flutter. Her TSH was < 0.015 along with free T4 of 1.72 and free T3 5.8. She received iv contrast when she had CT scan of chest done. Hyperthyroidism ? toxic multinodular goiter vs Graves' disease. 1. check thyroid antibody panel and TSI (added on to ER blood sample); 2. start Methimazole 5 mg daily; the possible side effects related to antithyroid medications have been discussed with her; 3. thyroid function might get worse as she received iv contrast this morning. I have recommended monitoring free T4 level tomorrow. 4. rate control as per cardiology. will follow. Consult Acknowledgment - Thank you for your consult request.
[2016-05-19 11:40] LABS: PTT 53 SEC (25-37)
--- NOTE | 2016-05-19 12:41 | Cons- Cardiology ---
General Information and HPI Consulting Request Date of Consult: 05/19/16 Requested By: ELIAS UMANZOR MD Reason for Consult: Atrial fibrillation History of Present Illness: The patient is a 40-year-old female with history of asthma, GERD, and thyroid nodules who presented with complaint of palpitations, chest discomfort and shortness of breath. She notes that for the last 3 days she was feeling sluggish, and intermittently felt a strange sensation in her chest. She thought it was her asthma, however it was not improved by her nebulizer therapy. She was evaluated in the emergency department where she was found to be in atrial fibrillation. Ventricular rate was mostly controlled, although was borderline elevated at times. She had intermittent atrial fibrillation while in the emergency department, however since being transferred to the telemetry floor she has been in sinus rhythm with no further arrhythmias. No prior history of chest pain or palpitations. No lightheadedness or dizziness. No syncope. No orthopnea. She was noted to have a low TSH, and she has been evaluated by endocrinology for possible hyperthyroidism Allergies/Medications Allergies: Coded Allergies: latex (HIVES 08/18/15) Home Med List: Albuterol Sulfate (Proair Hfa) 90 MCG HFA.AER.AD 2 PUF INH Q4-6 PRN PRN ASTHMA (Reported) Albuterol Sulfate 2.5 MG/3 ML (0.083 %) VIAL.NEB 1 Vial INH/[place] PRN ASTHMA ( Reported) Biotin (Hard Nails) 2,500 MCG CAPSULE 2 CAP PO DAILY SUPPLEMENT (Reported) Budesonide/Formoterol Fumarate (Symbicort 160-4.5 Mcg Inhaler) 160 MCG-4.5 MCG/ ACTUATION HFA.AER.AD 2 PUF INH BID ASTHMA (Reported) Fluticasone/Salmeterol (Advair 250-50 Diskus) (Unknown Strength) BLST.W.DEV ( Unknown Dose) INH BID ASTHMA (Reported) Multivitamin (Multi-Day Vitamins) 1 EACH TABLET 1 TAB PO DAILY SUPPLEMENT ( Reported) Current Medications: Current Medications Sig/Gabi Start time Last Medication Dose Route Stop Time Status Admin Aspirin 0 .STK-MED ONE 05/18 2107 DC PO Aspirin 325 MG ONCE ONE 05/18 2099 DC 05/18 PO 05/18 Budesonide/ 2 PUF BID 05/18 2199 CAN Formoterol Fumarate INH Budesonide/ 2 PUF BID 05/18 2200 AC 05/19 Formoterol Fumarate INH 1050 Heparin Sodium 25,000 UNIT Q24H 05/18 2245 AC 05/18 (Porcine) IV 2302 Sodium Chloride 500 ML Ibuprofen 600 MG ONCE ONE 05/19 1000 DC 05/19 PO 05/19 1001 1051 Methimazole 5 MG DAILY 05/19 1000 AC 05/19 PO 1051 Review of Systems Review of Systems: Rash. No tremor. No melena. All other systems were reviewed, and were noted to be negative. 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 Surgical History Surgical History: chronic nonhealing ulcer fourth interspace right foot hammer toe surgery I&D LAPAROSCOPY Family History Relations & Conditions If Any: MOTHER Hepatic cirrhosis Psychosocial History Smoking Status: Never Smoked ETOH Use: denies use Illicit Drug Use: denies illicit drug use Exam & Diagnostic Data Vital Signs and I&O Vital Signs Date Time Temp Pulse Resp B/P Pulse O2 O2 Flow FiO2 Ox Delivery Rate 05/19 0907 97.8 88 18 96/64 98 Room Air 05/19 0826 100 Room Air 05/19 0823 97.9 90 18 107/74 100 Room Air 05/19 0815 97.9 90 18 107/74 100 Room Air 05/19 0534 98.4 81 18 115/61 96 Nasal 2.0L Cannula 05/18 1839 Room Air 05/18 1754 98.0 100 16 114/70 98 Room Air Room Air Intake & Output 05/19 1600 05/19 0800 05/19 0000 05/18 1600 05/18 0800 05/18 0000 Intake Total Output Total Balance Patient 190 lb 190 lb Weight Physical Exam: Gen: The patient is in no acute distress HEENT: Normal nose, ears, and oropharynx. Pupils equal bilaterally. Conjunctiva normal. Neck: Supple with no JVD, no masses, and no thyromegaly Lungs: Clear to auscultation with normal respiratory effort Heart: RRR, S1, S2, no murmurs. No peripheral edema, 2+ pulses in the lower extremities bilaterally Abdomen: Soft, nontender, no masses. No hepatomegaly. No splenomegaly Extremities: No clubbing or cyanosis. Normal muscle strength in the upper and lower extremities Skin: Normal skin turgor with no skin ulcers or lesions noted. Neuro: Cranial nerves intact. Sensation intact Psych: Alert and oriented 3 with appropriate affect Labs/Chuy Results: Laboratory Tests 05/19 05/19 05/19 1105 0600 0500 Chemistry Troponin I (< 0.11 ng/ml) < 0.01 Thyroid Stim Immunoglob Pending Coagulation APTT (25 - 37 SEC) 53 H 62 H Immunology Thyroglobulin Antibody (< 61 U/mL) 32 Thyroid Peroxidase Ab (< 61 U/mL) > 1300 H Toxicology Urine Opiates Screen (>2000 NG/ML) < 100.00 Methadone Screen (>300 NG/ML) < 40 Barbiturate Screen (>200 NG/ML) < 60 Ur Phencyclidine Scrn (>25 NG/ML) < 6.00 Amphetamines Screen (>1000 NG/ML) < 100 U Benzodiazepines Scrn (>200 NG/ML) < 85 Urine Cocaine Screen (>300 NG/ML) < 50 Urine Cannabis Screen (>50 NG/ML) < 5.00 Urines Urine Color (YEL,AMB,STR) BLDY H Urine Clarity (CLEAR) TURBD H Urine pH (5.0 - 8.0) 6.0 Ur Specific [place] (1.001 - 1.035) 1.020 Urine Protein (NEG,<30 MG/DL) 30 H Urine Ketones (NEG) NEG Urine Nitrite (NEG) NEG Urine Bilirubin (NEG) NEG Urine Urobilinogen (0.1 - 1.0 EU/dl) 0.2 Ur Leukocyte Esterase (NEG) NEG Ur Microscopic SEDIMENT EXAMINED Urine RBC (0 - 5 /HPF) PACKD H Ur Epithelial Cells (NONE,FEW) MOD H Urine Hemoglobin (NEG) LARGE H Urine Glucose (N MG/DL) NEG 05/19 05/18 05/18 0030 1830 1807 Chemistry Sodium (137 - 145 mmol/L) 137 Potassium (3.5 - 5.1 mmol/L) 4.1 Chloride (98 - 107 mmol/L) 101 Carbon Dioxide (22 - 30 mmol/L) 25 Anion Gap (5 - 16) 12 BUN (7 - 17 mg/dL) 12 Creatinine (0.5 - 1.0 mg/dL) 0.6 Estimated GFR (>60 ml/min) > 60 BUN/Creatinine Ratio (7 - 25 %) 20.0 Glucose (65 - 99 mg/dL) 92 Calcium (8.4 - 10.2 mg/dL) 9.0 Magnesium (1.6 - 2.3 mg/dL) 1.6 Iron (37 - 170 ug/dL) 50 TIBC (265 - 497 ug/dL) 298 Ferritin (6.24 - 137 ng/mL) 26.9 Total Bilirubin (0.2 - 1.3 mg/dL) 0.3 AST (14 - 36 U/L) 18 ALT (9 - 52 U/L) 20 Alkaline Phosphatase (<127 U/L) 71 Troponin I (< 0.11 ng/ml) < 0.01 < 0.01 Total Protein (6.3 - 8.2 g/dL) 7.2 Albumin (3.5 - 5.0 g/dL) 3.5 Globulin (1.9 - 4.2 gm/dL) 3.7 Albumin/Globulin Ratio (1.1 - 2.2 %) 0.9 L Triglycerides (<150 mg/dL) 154 H Cholesterol (<200 MG/DL) 127 LDL Cholesterol, Calc (65 - 129 mg/dL) 52 L HDL Cholesterol (40 - 60 mg/dL) 45 Cholesterol/HDL Ratio (0.00 - 4.23 %) 3 TSH (0.270 - 4.200 uIU/mL) < 0.015 L Free T4 (0.79 - 2.35 ng/dL) 1.72 Free T3 (2.32 - 6.09 pg/mL) 5.8 Total Beta HCG (NEGATIVE) NEGATIVE Coagulation PT (9.4 - 12.5 SEC) 11.1 INR (0.90 - 1.19) 1.06 APTT (25 - 37 SEC) 28 D-Dimer (70 - 232 ng/ml) 283 H Cancelled Hematology CBC w Diff NO MAN DIFF REQ WBC (4.8 - 10.8 /CUMM) 11.1 H RBC (4.20 - 5.40 /CUMM) 5.44 H Hgb (12.0 - 16.0 G/DL) 10.4 L Hct (37 - 47 %) 34.0 L MCV (81.0 - 99.0 FL) 62.5 L MCH (27.0 - 31.0 PG) 19.1 L RDW (11.5 - 14.5 %) 16.3 H Plt Count (130 - 400 /CUMM) 317 MPV (7.4 - 10.4 FL) 8.4 Gran % (42.2 - 75.2 %) 69.3 Lymphocytes % (20.5 - 51.1 %) 19.5 L Monocytes % (1.7 - 9.3 %) 9.1 Eosinophils % (0 - 5 %) 1.7 Basophils % (0.0 - 2.0 %) 0.4 Absolute Granulocytes (1.4 - 6.5 /CUMM) 7.7 H Absolute Lymphocytes (1.2 - 3.4 /CUMM) 2.2 Absolute Monocytes (0.10 - 0.60 /CUMM) 1.0 H Absolute Eosinophils (0.0 - 0.7 /CUMM) 0.2 Absolute Basophils (0.0 - 0.2 /CUMM) 0 PUBS MCHC (33.0 - 37.0 G/DL) 30.6 L Diagnostic Data EKG Results EKG tracings are independently reviewed. EKG from 174 yesterday revealed atrial fibrillation with ventricular response of 105. EKG from 002 today revealed atrial fibrillation with rate of 101. EKG from 0500 today reveals sinus rhythm at 87. CXR Results chest x-ray: Negative Other Results CTA chest: Negative. No evidence of pulmonary embolism. Assessment/Plan Assessment/Plan The patient is a 40-year-old female with no prior cardiac history who was diagnosed with thyroid nodules a few months ago. She presents with palpitations and chest tightness, and she is found to be in atrial fibrillation. She has now converted. She is also noted to have a low TSH and possible hyperthyroidism. She has been evaluated by endocrinology, and will be started on methimazole. Recommendations: * Start Toprol-XL 25 mg daily. * The patient has no stroke risk factors other than female gender, and her Chads2-Vasc score is 1. I recommend holding off on fci anticoagulation for now. She should be continued on IV heparin while in the hospital, and changed to aspirin 81 mg daily on discharge. * The patient is clear for discharge today from a cardiac standpoint if she remains stable. * Echocardiogram is pending. If not completed prior to discharge, this may be done as an outpatient. * I advised the patient to call with any symptoms after discharge, and to follow up with me in the office in one week. Consult Acknowledgment - Thank you for your consult request.
--- NOTE | 2016-05-19 13:34 | Patient Discharge Instructions ---
Discharge Instructions General Discharge Information You were seen/treated for: Fever, nausea, vomiting, chills, weakness, increased generalized edema. Palpitations. Chest pain. Shortness of breath. If you have any adverse reactions from any of the medications prescribed please inform your primary care physician and you may be required to come back to the emergency department. Thank you for letting us be part of your care Special Instructions: Please follow-up with your primary care physician on 05/22/2016. This is for a post hospital discharge follow-up. Please follow-up with the advertising writer on 05/26/2016. We have provided you with a referral. You might be considered for additional Cardiac Testing (likely an Echocardiogram). If you have any symptoms after discharge, please call the advertising writer or come back to the ED immediately. Please follow-up with the airplane designer on 05/26/2016. We have provided you with a referral. Diet Continue normal diet: Yes Recommended Diet: Heart Healthy Activity Activity Self Limited: Yes (As Tolerated) Acute Coronary Syndrome Inclusion Criteria At DC or during hospital stay patient has or had the following: ACS DIAGNOSIS No Discharge Core Measures Meds if any: Prescribed or Continued at Discharge Meds if any: NOT Prescribed or Continued at Discharge Congestive Heart Failure Inclusion Criteria At DC or during hospital stay patient has or had the following: CHF DIAGNOSIS No Discharge Core Measures Meds if any: Prescribed or Continued at Discharge Meds if any: NOT Prescribed or Continued at Discharge Cerebrovascular accident Inclusion Criteria At DC or during hospital stay patient has or had the following: CVA/TIA Diagnosis No Discharge Core Measures Meds if any: Prescribed or Continued at Discharge Meds if any: NOT Prescribed or Continued at Discharge Venous thromboembolism Inclusion Criteria VTE Diagnosis No VTE Type NONE VTE Confirmed by (Test) NONE Discharge Core Measures - Per Current guidelines, there needs to be overlap - treatment for the first 5 days of Warfarin therapy. - If discharged on Warfarin prior to 5 days of - overlap therapy, the patient will need to be - assessed for post discharge needs including - *Post discharge parental anticoagulation - *Warfarin and/or parental anticoagulation education - *Follow up date to check INR post discharge At least 5 days overlap therapy as Inpatient No Meds if any: Prescribed or Continued at Discharge Note: Overlap Therapy is Warfarin and Anticoagulant Meds if any: NOT Prescribed or Continued at Discharge
[2016-05-19] MEDS ORDERED: TAPAZOLE5 MG PO (13:39)
[2016-05-19] MEDS ORDERED: TOPROL XL25 M1 PO (13:41)
[2016-05-19] MEDS ORDERED: ADULT LOW DOSE81 MG PO (13:42)
--- NOTE | 2016-05-19 16:11 | Discharge Summary ---
Visit Information Visit Dates Admission Date: 05/18/16 Discharge Date: 05/19/16 Hospital Course Course Attending Physician: ELIAS UMANZOR MD Primary Care Physician: LACHO ARZATESUMMER [facility] Course: Ms. Regalado is a 40-year-old female with past medical history of GERD, asthma, menorrhagia, dysmenorrhea, thyroid nodules, who presented to the emergency department on 05/18/2016, complaining of intermittent palpitations which began approximately 72 hours prior to admission. Initial EKG at the time of admission showed that she had developed Atrial Flutter. She was admitted to the telemetery service and below is a summary of the care she received. #New-onset atrial fibrillation likely due to sub clinical Hyperthyroidism While the patient was admitted, she converted to a normal sinus rhythm. On day two of admission, we began the patient on Metoprolol 25 mg to be taken daily. The patient was initially started on a Heparin drip, prior to discharge, a daily Arpirin 81 mg was prescribed. Troponins and EKG showed no evidence of any Ischemia. Upon admission, a CTA was done, which did not show any evidence of a PE. The patient was given a referral to follow up with the Ribbon Blockmaker within one week. #Hyperthyroidism myranda due to Graves disease vs Multinodular Goiter While the patient was admitted, she was started on Methimazole 5 mg daily. Follow up tests for thyroid blood work, were given to the patient to perform as an outpatient. Free T3, T4, and TSH. A referral with the fry cook was given. #History of Asthma The patient was continued on Symbicort. Albuterol Sulfate was administered as needed. #History of Dysmenorrhea Patients pain was managed appropriates with NSAIDS. Allergies: Coded Allergies: latex (HIVES 08/18/15) Pertinent Lab Results: SERVICE DATE: 05/18/16 EXAM TYPE: CAT - CTA CHEST-PULMONARY EMBOLISM EXAMINATION: CT ANGIOGRAM OF THE CHEST WITH AND WITHOUT CONTRAST (CT PULMONARY ANGIOGRAM FOR PE) CLINICAL INFORMATION: SOB, AFIB, CHEST CRAMPING COMPARISON: Chest x-ray 05/18/2016 TECHNIQUE: Prior to contrast administration, noncontrast localization images were obtained. Subsequently, multidetector volumetric imaging was performed from the thoracic inlet to below the diaphragms following the administration of 120 mL Optiray 350 intravenous contrast. No contrast reaction reported Sagittal, coronal, and MIP oblique sagittal reformatted images were obtained on the CT workstation, uploaded to PACS, and reviewed. Total exam dose-length product 565.77 mGy-cm FINDINGS: QUALITY OF STUDY/CONTRAST BOLUS: Satisfactory. PULMONARY ARTERIES: No central or segmental pulmonary emboli. THORACIC AORTA: No aneurysm or dissection. LUNG: No focal consolidation, nodules or masses. PLEURA: No pleural effusion or pneumothorax. MEDIASTINUM: Normal heart size. No pericardial effusion. No hilar or mediastinal lymphadenopathy. No evidence of septal bowing or right heart strain. CHEST WALL/AXILLA: No axillary or internal mammary lymphadenopathy. OSSEOUS STRUCTURES: No acute or suspicious osseous abnormality. UPPER ABDOMEN: Unremarkable. No reflux of contrast into the hepatic veins to suggest elevated right heart pressures. There is a left renal cyst in the upper pole measuring 3 cm. IMPRESSION: Normal CT of chest. No evidence of pulmonary embolism. VTE: negative DICTATED BY: SERVANDO PADGETT MD SERVICE DATE: 05/18/16 EXAM TYPE: RAD - XRY-PORTABLE CHEST XRAY EXAMINATION: XR PORTABLE CHEST CLINICAL INFORMATION: 40-year-old female with chest tightness and shortness of breath. COMPARISON: None recent. TECHNIQUE: Portable view of the chest was obtained in the AP semierect position. FINDINGS: No significant abnormality is noted involving the heart, lungs, mediastinum, bony thorax or soft tissues. IMPRESSION: Unremarkable examination. DICTATED BY: ERNIE PAUL MD Disposition Summary Disposition Principal Diagnosis: New-onset atrial fibrillation likely due to sub clinical Hyperthyroidism Additional Diagnosis: Hyperthyroidism [facility] due to Graves disease vs Multinodular Goiter History of Asthma History of Dysmenorrhea Discharge Disposition: home or self care Discharge Instructions General Discharge Information Code Status: Full Code Patient's Diet: Heart Healthy Patient's Activity: As Tolerated Follow-Up Instructions/Appts: Please follow-up with your primary care physician on 05/22/2016. This is for a post hospital discharge follow-up. Please follow-up with the crusher and blender operator on 05/26/2016. We have provided you with a referral. You might be considered for additional Cardiac Testing (likely an Echocardiogram). If you have any symptoms after discharge, please call the crusher and blender operator or come back to the ED immediately. Please follow-up with the fry cook on 05/26/2016. We have provided you with a referral. Medications at Discharge Discharge Medications: Continue taking these medications: Multivitamin (Multi-Day Vitamins) 1 EACH TABLET 1 Tablet ORAL DAILY Comments: NOT TAKEN IN HOSPITAL Biotin (Hard Nails) 2,500 MCG CAPSULE 2 Capsule ORAL DAILY Comments: NOT TAKEN IN HOSPITAL Albuterol Sulfate (Proair Hfa) 90 MCG HFA.AER.AD 2 Puff Inhale through mouth EVERY 4-6 HOURS NEEDED as needed for ASTHMA Comments: NOT TAKEN IN HOSPITAL Budesonide/Formoterol Fumarate (Symbicort 160-4.5 Mcg Inhaler) 160 MCG-4.5 MCG/ ACTUATION HFA.AER.AD 2 Puff Inhale through mouth TWICE DAILY Comments: Last Taken: 05/19/16 Time: 10:00 AM Fluticasone/Salmeterol (Advair 250-50 Diskus) (Unknown Strength) BLST.W.DEV Unknown Dose Inhale through mouth TWICE DAILY Comments: NOT TAKEN IN HOSPITAL Albuterol Sulfate (Albuterol Sulfate) 2.5 MG/3 ML (0.083 %) VIAL.NEB 1 Vial Inhale Solution as needed for ASTHMA Comments: NOT TAKEN IN HOSPITAL Start taking the following new medications: Metoprolol Succ XL (Toprol XL) 25 MG TAB 25 Milligram ORAL DAILY Qty = 30 No Refills Comments: Last Taken: 05/19/16 Time: 3:00 PM Methimazole (Tapazole) 5 MG TABLET 5 Milligram ORAL DAILY Qty = 30 No Refills Comments: Last Taken: 05/19/16 Time: 10:00 AM Aspirin (Adult Low Dose Aspirin EC) 81 MG TABLET. 1 Tablet ORAL DAILY Qty = 30 No Refills Comments: NOT TAKEN IN HOSPITAL Copies To: SUMMER MONK APRN; GURMEET DAILEY,ROSANGELA; JESIKA DAILEY,LUAN Attending MD Review Statement Documenting Attending: ELIAS UMANZOR MD Other Findings: The patient was seen and discussed with house staff. Agree with the plan of care as outlined.
[2016-05-19 16:18] VITALS: BP 102/60
== END 2016-05-19 17:10 ==
LOC: ERH 17:34 → ERHI 20:59 → 1NO 05-19 08:43
PROVIDERS: Internal Medicine; Physician Assistant; ADMIT Student in an Organized Health Care Education/Training Program
DX: I48.91 Unspecified atrial fibrillation (principal); K21.9 Gastro-esophageal reflux disease without esophagitis; J45.909 Unspecified asthma, uncomplicated; E04.1 Nontoxic single thyroid nodule; E05.90 Thyrotoxicosis, unspecified without thyrotoxic crisis or storm; N94.6 Dysmenorrhea, unspecified
CPT/HCPCS: 2000; 6020; 80307; 81001; 84481; 86376; 86800; 93005; 93010; 96374; G0378; J1644; J3490

== ENCOUNTER 2017-07-21 20:10 | Emergency (ER) | payer OTHER ==
[~2017-07-21] VITALS: Ht 160 cm; Wt 95.3 kg
[~2017-07-21 20:10] MED LIST changes: +ADULT LOW DOSE81 MG PO; +ADVAIR 250-501 EACH INH; +ALBUTEROL2.5 MG/3 M INH/SOL; +AMOXICILLIN875 M1 PO; +BACTRIM DS TAB1 EACH PO; +HARD NAILS2500 MCG PO; +HYDROCODON-ACE1 EAC2 PO; +LEVOXYL50 MCG PO; +MOBIC15 M1 PO; +MULTI-DAY VITA1 EACH PO; +PANTOPRAZOLE SO40 M1 PO; +PROAIR HFA8.5 GM INH; +SYMBICORT 16010.2 GM INH; +TAPAZOLE5 MG PO; +TOPROL XL25 M1 PO; +VITAMIN D250000 UNIT PO
[2017-07-21 20:17] VITALS: BP 128/83
[2017-07-21] MEDS ORDERED: NAPROSYN500 M1 PO (21:23)
[2017-07-21] MEDS ORDERED: ROBAXIN500 M1 PO (21:23)
--- NOTE | 2017-07-21 21:23 | ED GENERAL ADULT ---
History of Present Illness General Chief Complaint: General Adult Stated Complaint: L UPPER BACK PAIN,SOB, STATES ?THYROID ISSUE Source: patient Exam Limitations: no limitations Vital Signs & Intake/Output Vital Signs & Intake/Output Vital Signs Date Time Temp Pulse Resp B/P B/P Pulse O2 O2 Flow FiO2 Mean Ox Delivery Rate 07/21 2139 97 Room Air 07/21 2016 97.0 88 18 128/83 100 Room Air Allergies Coded Allergies: latex (SKIN CRACKED AND BLED PER PT 11/17/16) Reconcile Medications Albuterol Sulfate (Proair Hfa) 90 MCG HFA.AER.AD 2 PUF INH Q4-6 PRN PRN ASTHMA (Reported) Albuterol Sulfate 2.5 MG/3 ML (0.083 %) VIAL.NEB 1 Vial INH/KENTON PRN ASTHMA ( Reported) Amoxicillin 875 MG TABLET 1 TAB PO BID abscess Biotin (Hard Nails) 2,500 MCG CAPSULE 2 CAP PO DAILY SUPPLEMENT (Reported) Budesonide/Formoterol Fumarate (Symbicort 160-4.5 Mcg Inhaler) 160 MCG-4.5 MCG/ ACTUATION HFA.AER.AD 2 PUF INH BID ASTHMA (Reported) Ergocalciferol (Vitamin D2) (Vitamin D2) 50,000 UNIT CAPSULE 1 CAP PO QMON SUPPLEMENT (Reported) Fluticasone/Salmeterol (Advair 250-50 Diskus) (Unknown Strength) BLST.W.DEV ( Unknown Dose) INH BID ASTHMA (Reported) Hydrocodone/Acetaminophen (Hydrocodon-Acetaminophen 5-325) 5 MG-325 MG TABLET 1-2 TAB PO Q4-6 PRN PRN pain Levothyroxine Sodium (Levoxyl) 50 MCG TABLET 1 TAB PO DAILY THYROID (Reported ) Meloxicam (Mobic) 15 MG TABLET 1 TAB PO DAILY pain Methocarbamol (Robaxin) 500 MG TABLET 1 TAB PO TID PRN MUSCLE STRAIN Metoprolol Succ XL (Toprol XL) 25 MG TAB 25 MG PO DAILY [facility] Naproxen (Naprosyn) 500 MG TABLET 1 TAB PO BID PRN PAIN Pantoprazole Sodium 40 MG TABLET.DR 1 TAB PO DAILY GI (Reported) Sulfamethoxazole/Trimethoprim (Bactrim Ds Tablet) 800 MG-160 MG TABLET 1 TAB PO BID abscess Triage Note: PT TO TRIAGE C/O L SHOULDER AND BACK PAIN S/P MOVING A PATIENT WITH A JOCELINE LIFT LAST NIGHT. PT REPORTS DIFFICULTY TAKING DEEP BREATHS. TOOK TYLENOL WITHOUT EFFECT. +ROM. RA SAT 100%. PT REPORTS WORK RELATED INJURY "BUT NOTHING WOULD COME OF IT." Triage Nurses Notes Reviewed? yes Onset: Abrupt Duration: day(s): (1) Timing: remote history Injury Environment: work Severity: moderate Severity Numbers: 6 Modifying Factors: Improves With: immobilization. Worsens With: movement. 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 Patient reports that she was trying to lift someone by herself and felt pain immediately. Pain is achy and throbbing and worse with range of motion. Patient has been trying icy hot without relief. Denies any nausea or vomiting fevers or chills. Denies any chest pain palpitations or shortness of breath. Patient does report that she feels the pain more when she takes deep breath. (Karma Schulz) Past History Travel History Traveled to [place] past 21 day No Medical History Any Pertinent Medical History? 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 No (Karma Schulz) Review of Systems Review of Systems Constitutional: Reports: no symptoms. Comments Review of systems: See HPI, All other systems negative. Constitutional, no chills fever or weight loss HEENT: No visual changes no sore throat no congestion Cardiovascular: No chest pain ,palpitation , orthopnea or ankle swelling Skin, no jaundice no rashes Respiratory: No dyspnea cough sputum or hemoptysis GI: No nausea no vomiting : No dysuria No hematuria Muscle skeletal: no neck pain, Neurologic: No numbness no confusion Psych: No stress anxiety or depression,. Heme/endocrine: No bruising no bleeding no polyuria or polydipsia Immunology: No splenectomy or history of AIDS (Karma Schulz) Physical Exam Physical Exam General Appearance: well developed/nourished, no apparent distress, alert, awake , comfortable Comments: Well-developed well-nourished person in no acute distress HEENT: Atraumatic, normocephalic Neck: Supple, no lymphadenopathy, normal range of motion without pain or tenderness Back: Tender to palpation along the thoracic paraspinal muscles on the left as well as the lumbar paraspinal muscles on the left. Also tender to palpation along the posterior aspect of the left shoulder. Cardiovascular: Regular rate and rhythms no murmurs rubs or gallops, normal JVP Respiratory: Chest nontender. No respiratory distress.breath sounds clear to auscultation bilaterally Extremity: No edema, full range of motion of upper extremities bilaterally without difficulty or pain. Electronic Security Specialist strength is equal and symmetric bilaterally. Radial pulses are 2+ bilaterally. Neuro: Alert oriented x3, motor sensory normal Skin: No appreciable rash on exposed skin, skin is warm and dry. Psych: Mood and affect is normal, memory and judgment is normal. Core Measures ACS in differential dx? No CVA/TIA Diagnosis: No Sepsis Present: No Sepsis Focused Exam Completed? No (Karma Schulz) Progress Differential Diagnoses I considered the following diagnoses in my evaluation of the patient: Muscular strain, contusion, herniated disc Plan of Care: Current Medications Sig/Gabi Start time Last Medication Dose Stop Time Status Admin Ketorolac 30 MG ONCE ONE 07/21 2129 UNVr Tromethamine 07/21 2130 (Toradol) Initial ED EKG: none (Karma Schulz) Departure Departure Time of Disposition: 2119 Disposition: ER WALKOUT Condition: Stable Clinical Impression Primary Impression: Muscle strain Referrals: Litzy Jones APRN (PCP/Family) Additional Instructions: FOLLOW UP WITH YOUR PRIMARY DOCTOR, CALL TO MAKE APPOINTMENT. TAKE ROBAXIN AND NAPROXEN PRESCRIBED. APPLY WARM COMPRESSES TO AFFECTED AREA. Return for worsening symptoms or concerns. Avoid heavy lifting or sudden movements. Departure Forms: Customer Survey General Discharge Information Prescriptions: Current Visit Scripts Methocarbamol (Robaxin) 1 TAB PO TID PRN MUSCLE STRAIN #20 TAB Naproxen (Naprosyn) 1 TAB PO BID PRN PAIN #20 TAB (Karma Schulz) PA/FIELD AGENT Co-Sign Statement Statement: ED Attending supervision documentation- [] I saw and evaluated the patient. I have also reviewed all the pertinent lab results and diagnostic results. I agree with the findings and the plan of care as documented in the PA's/FIELD AGENT's documentation. [X] I have reviewed the ED Record and agree with the PA's/FIELD AGENT's documentation. [] Additions or exceptions (if any) to the PAs/FIELD AGENT's note and plan are summarized below: [] (Brandon Cohen DO) Critical Care Note Critical Care Note Critical Care Time: non-applicable (Karma Schulz)
== END 2017-07-21 21:50 ==
LOC: ERH 20:10
DX: S29.012A Strain of muscle and tendon of back wall of thorax, initial encounter (principal); X50.0XXA Overexertion from strenuous movement or load, initial encounter; Y93.F2 Activity, caregiving, lifting; Y92.9 Unspecified place or not applicable
CPT/HCPCS: 96372; J1885

== ENCOUNTER 2017-12-15 17:22 | Emergency (ER) | payer OTHER ==
[~2017-12-15] VITALS: Ht 160 cm; Wt 111.1 kg
[~2017-12-15 17:22] MED LIST changes: +NAPROSYN500 M1 PO; +ROBAXIN500 M1 PO
--- NOTE | 2017-12-15 18:50 | RADIOLOGY REPORT ---
EXAMINATION: XR WRIST, RIGHT CLINICAL INFORMATION: Pain. Presumptive diagnosis: Fracture. COMPARISON: None TECHNIQUE: PA, lateral, and oblique views of the right wrist. A scaphoid view was not obtained. FINDINGS: No fracture or malalignment. Bone mineralization is normal. Joint spaces appear well-preserved. Mild soft tissue swelling at the wrist. No soft tissue calcification. IMPRESSION: Mild soft tissue swelling of the right wrist. No acute fractures are identified. If the patient is focally tender at the anatomic snuffbox, consider a dedicated scaphoid view.
--- NOTE | 2017-12-15 19:52 | ED GENERAL ADULT ---
History of Present Illness General Chief Complaint: Hand or Wrist Injury Stated Complaint: R WRIST PAIN X 3 DAYS Source: patient Exam Limitations: no limitations Vital Signs & Intake/Output Vital Signs & Intake/Output Vital Signs Date Time Temp Pulse Resp B/P B/P Pulse O2 O2 Flow FiO2 Mean Ox Delivery Rate 12/15 1819 97.1 86 18 130/89 100 Room Air Allergies Coded Allergies: latex (SKIN CRACKED AND BLED PER PT 11/17/16) Reconcile Medications Albuterol Sulfate (Proair Hfa) 90 MCG HFA.AER.AD 2 PUF INH Q4-6 PRN PRN ASTHMA (Reported) Albuterol Sulfate 2.5 MG/3 ML (0.083 %) VIAL.NEB 1 Vial INH/KENTON PRN ASTHMA ( Reported) Amoxicillin 875 MG TABLET 1 TAB PO BID abscess Biotin (Hard Nails) 2,500 MCG CAPSULE 2 CAP PO DAILY SUPPLEMENT (Reported) Budesonide/Formoterol Fumarate (Symbicort 160-4.5 Mcg Inhaler) 160 MCG-4.5 MCG/ ACTUATION HFA.AER.AD 2 PUF INH BID ASTHMA (Reported) Ergocalciferol (Vitamin D2) (Vitamin D2) 50,000 UNIT CAPSULE 1 CAP PO QMON SUPPLEMENT (Reported) Fluticasone/Salmeterol (Advair 250-50 Diskus) (Unknown Strength) BLST.W.DEV ( Unknown Dose) INH BID ASTHMA (Reported) Hydrocodone/Acetaminophen (Hydrocodon-Acetaminophen 5-325) 5 MG-325 MG TABLET 1-2 TAB PO Q4-6 PRN PRN pain Levothyroxine Sodium (Levoxyl) 50 MCG TABLET 1 TAB PO DAILY THYROID (Reported ) Meloxicam (Mobic) 15 MG TABLET 1 TAB PO DAILY pain Methocarbamol (Robaxin) 500 MG TABLET 1 TAB PO TID PRN MUSCLE STRAIN Metoprolol Succ XL (Toprol XL) 25 MG TAB 25 MG PO DAILY [facility] Naproxen (Naprosyn) 500 MG TABLET 1 TAB PO BID PRN PAIN Naproxen (Naprosyn) 500 MG TABLET 1 TAB PO BID PRN PAIN Pantoprazole Sodium 40 MG TABLET.DR 1 TAB PO DAILY GI (Reported) Sulfamethoxazole/Trimethoprim (Bactrim Ds Tablet) 800 MG-160 MG TABLET 1 TAB PO BID abscess Triage Note: PT STATES THAT FOR THE PAST 3 DAYS HER R WRIST HAS BEEN BOTHERING HER UNSURE IF SHE INJURED IT Triage Nurses Notes Reviewed? yes Onset: Gradual Duration: day(s): Timing: constant : No Patient currently breastfeeds: No HPI: 41 y/o right hand dominant female with a h/o asthma and hyperthyroid presenting with atraumatic right wrist pain x3 days. Pt reports pain to the lateral aspect of her wrist that is worse with movement. 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 Denies numbness or paresthesias. Past History Travel History Traveled to [place] past 21 day No Medical History Any Pertinent Medical History? 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 No Review of Systems Review of Systems Constitutional: Reports: no symptoms. EENTM: Reports: no symptoms. Respiratory: Reports: no symptoms. Cardiovascular: Reports: no symptoms. GI: Reports: no symptoms. Genitourinary: Reports: no symptoms. Musculoskeletal: Reports: see HPI. Skin: Reports: no symptoms. Neurological/Psychological: Reports: no symptoms. Hematologic/Endocrine: Reports: no symptoms. Immunologic/Allergic: Reports: no symptoms. All Other Systems: Reviewed and Negative Physical Exam Physical Exam General Appearance: well developed/nourished, no apparent distress, alert, awake , comfortable Head: atraumatic, normal appearance Eyes: Bilateral: normal appearance. Neck: normal inspection Respiratory: normal breath sounds, lungs clear Cardiovascular: regular rate/rhythm Gastrointestinal: soft, non-tender Back: normal inspection Extremities: right wrist: no ecchymosis, edema, or signs of injury +TTP over radial aspect, no scaphoid TTP unrestricted ROM sensation intact to m/r/u nerves 4/5 motor strength at the wrist radial pulse 2+ Neurologic/Psych: awake, alert, oriented x 3, normal gait, normal mood/affect Skin: intact, normal color, warm/dry Core Measures ACS in differential dx? No CVA/TIA Diagnosis: No Sepsis Present: No Sepsis Focused Exam Completed? No Progress Differential Diagnoses I considered the following diagnoses in my evaluation of the patient: [likely with tendonitis, low concern for fx vs septic joint] Plan of Care: Orders Procedure Date/time Status Durable Medical Equipment 12/15 1948 Active Current Medications Sig/Gabi Start time Last Medication Dose Stop Time Status Admin Ibuprofen 600 MG ONCE ONE 12/16 1999 UNVr (Motrin) 12/15 2000 x-ray IMPRESSION: Mild soft tissue swelling of the right wrist. No acute fractures are identified. If the patient is focally tender at the anatomic snuffbox, consider a dedicated scaphoid view. Placed in thumb spica pre-made wrist brace, given rx naproxen for pain, will f/u with PMD, and given strict return precautions. Initial ED EKG: none Departure Departure Disposition: HOME OR SELF CARE Condition: Stable Clinical Impression Primary Impression: Right wrist pain Referrals: Litzy Jones APRN (PCP/Family) Additional Instructions: Keep wrist in brace at all times. Use naproxen as needed for pain. Follow-up with your primary care provider for reevaluation. Return to emergency department complaining of worsening symptoms. Please note that if her pain is not resolving within the next 7-10 days he should have repeat x-rays to rule out a scaphoid fracture. Departure Forms: Customer Survey General Discharge Information Prescriptions: Current Visit Scripts Naproxen (Naprosyn) 1 TAB PO BID PRN PAIN #60 TAB Critical Care Note Critical Care Note Critical Care Time: non-applicable
[2017-12-15] MEDS ORDERED: NAPROSYN500 M1 PO (19:59)
[2017-12-15 20:00] VITALS: BP 146/90
== END 2017-12-15 20:10 ==
LOC: ERH 17:22
DX: M25.531 Pain in right wrist (principal)
CPT/HCPCS: 73110-RT